=== PATIENT | male | born 1975 | race Caucasian/White ===

== ENCOUNTER 2016-10-16 06:20 | Inpatient (IN) | payer OTHER ==
[~2016-10-16] VITALS: Ht 182.9 cm; Wt 176.9 kg
[2016-10-16] VITALS (7 sets, daily range): BP systolic 127–159; BP diastolic 50–76
--- NOTE | ~2016-10-16 | O ---
[facility] [place] [address] OPERATIVE REPORT Name: PAULA GUNDERSON Room #: 547-P [facility] IN ..#: [id number] Admission: 10/16/16 Attend Phys: Arturo Coffey MD, F Discharge: 10/17/16 Date of : 71 Report #: [id number] THIS REPORT FOR: //name// CC: Blanca Coffey DATE OF SERVICE: 10/16/2016 SURGEON: Arturo Coffey M.D. NON MORSE INTERCEPT TECHNICIAN: Yovany Pitts M.D., Nevin Mehta N.Lazaro. PREOPERATIVE DIAGNOSES: 1. Super morbid obesity (body mass index greater than 50). 2. Type 2 diabetes mellitus. 3. Hypertension. 4. Gastroesophageal reflux disease. 5. Arthritis. 6. Asthma. 7. Bipolar mood disorder. 8. Depression. 9. Obstructive sleep apnea. POSTOPERATIVE DIAGNOSES: 1. Super morbid obesity (body mass index greater than 50). 2. Type 2 diabetes mellitus. 3. Hypertension. 4. Gastroesophageal reflux disease. 5. Arthritis. 6. Asthma. 7. Bipolar mood disorder. 8. Depression. 9. Obstructive sleep apnea. PROCEDURE: Laparoscopic sleeve gastrectomy with EGD. ANESTHESIA: General endotracheal anesthesia and local anesthetic. ESTIMATED BLOOD LOSS: 5 mL. SPECIMEN: Lateral stomach. COMPLICATIONS: None appreciated. INDICATIONS FOR PROCEDURE: This is a 41-year-old male patient who is super morbidly obese. He stands 6 feet 0 inches and weighed 409 pounds at his last [facility] [address] [place] [address] OPERATIVE REPORT Name: PAULA GUNDERSON Room #: 547-P [facility] IN ..#: [id number] Admission: 10/16/16 Attend Phys: Arturo Coffey MD, F Discharge: 10/17/16 Date of : 71 Report #: [id number] office visit. His body mass index was 55.5. His maximum weight is 450 pounds. He has had difficulty with his weight for his entire life and has tried numerous weight loss programs and plans with limited weight loss success. Any amount of weight he has lost, he has quickly regained plus additional weight after stopping the modality. He has numerous associated comorbidities including hypertension, obstructive sleep apnea and those listed above. The patient has been cleared from a multidisciplinary standpoint (dietary, psychology, and medically by his primary care physician). The patient presents now for bariatric surgery in the form of laparoscopic sleeve gastrectomy with EGD. OPERATIVE FINDINGS: On EGD, the patient's esophagus was normal down to 40 cm where the GE junction and Z-line were visualized. No hiatal hernia was present. The scope was advanced into the stomach, then beyond the pylorus to the third portion of the duodenum. There were no polyps, masses, diverticula, or ulcers seen. On retroflexion of the scope, a hiatal hernia was not present. Laparoscopically, the patient had an enlarged stomach. The liver showed mild fatty changes without genevieve steatohepatitis. The small-bowel and colon in the surrounding area appeared otherwise normal. The staple line was located 1 cm lateral to the GE junction, 3 cm lateral to the incisura of the stomach, and 4 cm lateral/proximal to the pylorus. Immediately after applying Tisseel to the staple line, the gastroscope within the sleeve was used to insufflate air and perform a leak test. The leak test was negative whereby no air bubbles were seen forming within the Tisseel. Endoluminally, there was no bleeding within the sleeve. No other significant intraabdominal pathology was identified. At the conclusion of the operation, the sponge, needle, and instrument counts were correct and there was no evidence for iatrogenic injury. The excised stomach was filled with 1500 mL of fluid on the back table. DESCRIPTION OF PROCEDURE IN DETAIL: After the benefits and risks of the procedure were explained to the patient which include but are not limited to risks of bleeding, infection, postoperative pain, postoperative expectations and risks of DVT and pulmonary embolus, informed consent was obtained. The patient was identified in the preoperative holding area. The patient was given IV antibiotics as documented in the chart in line with SCIP protocol. The patient was then taken to the operating room and was placed in the supine position. The patient was given IV sedation and was intubated without incident. SCDs were placed on the patient's bilateral lower extremities prior to induction of anesthesia. The patient had been placed in the modified low lying dorsal lithotomy position in stirrups on the beanbag. The beanbag and the patient were taped to the bed to secure the patient. A time-out was then performed to correctly identify the patient and procedure. An orogastric tube was placed by anesthesia. A bite block was placed and the fiberoptic EGD scope was passed into the patient's oropharynx, down the esophagus, into the stomach, and into the third portion of the duodenum. [facility] [address] [place] [address] OPERATIVE REPORT Name: PAULA GUNDERSON Room #: 547-P [facility] IN M.R.#: [id number] Admission: 10/16/16 Attend Phys: Arturo Coffey MD, F Discharge: 10/17/16 Date of : 71 Report #: [id number] Findings are as noted above. The scope was slowly withdrawn into the antrum and the scope was retroflexed. The hiatus was visualized. The scope was then straightened and the end of the gastroscope was placed at the pylorus. The stomach was decompressed with the scope. The patient's abdomen was then prepped and draped in the standard sterile fashion with surgical prep. Local anesthetic was infiltrated into the skin and subcutaneous tissue in the left supraumbilical area where a sharp #15-blade scalpel was used to make a 5-mm incision. The 5-mm Visiport was placed intraperitoneally with the 5-mm 0-degree angled laparoscope. Pneumoperitoneum was then achieved with insufflation of carbon dioxide to 15 mmHg. A 5-mm 30-degree angled laparoscope was then inserted. The 15-mm port was placed in the right supraumbilical area after local anesthetic was infiltrated into the skin and subcutaneous tissue and an appropriately sized incision was made. Two additional 5 mm ports were placed in the left abdomen after local anesthetic was infiltrated and incisions were made. All ports were placed under direct visualization. The patient was then placed in reverse Trendelenburg position. Local anesthetic was infiltrated into the skin and subcutaneous tissue in the subxiphoid area and a 5-mm incision was made through which a 5-mm obturator was passed into the abdominal cavity through the fascia to create a passageway for the Philomena liver retractor. The retractor was placed to retract the liver anteriorly. The retractor was held in place with the [employer]st apparatus. All abdominal adhesions were then taken down with blunt dissection, sharp dissection and judicious use of the ultrasonic dissector. The gastrosplenic ligament and short gastric vessels were then divided using the ultrasonic dissector with appropriate traction. Bleeding points were made hemostatic with the ultrasonic dissector. Dissection was carried proximally up to the left channing of the diaphragm. The distal end point of dissection was then measured at 4 cm proximal to the pylorus. The short gastric vessels and gastrocolic ligaments were dissected to that level. The stomach was then rotated medially to visualize any posterior attachments/adhesions to the stomach. The adhesions were dissected with a combination of sharp dissection and use of the ultrasonic dissector. The endoscope was then slightly withdrawn to place it along the lesser curvature of the stomach. Suction was applied to the orogastric tube which was then removed, leaving the endoscope in place as a 34 Fr bougie. The gastric sleeve was then created. Two black loads of the powered endoscopic DEVEN stapler buttressed with Nesha-Strips were used to staple and divide the stomach 4 cm proximal to the pylorus. Additional green loads buttressed with Nesha-strips were used to staple off the remainder of the stomach using the endoscope as the bougie. Care was taken to ensure that greater than 3 cm of space was present between the incisura and the staple line. The stomach was fully transected and placed in the right upper quadrant of the abdomen for later removal. The staple line of the sleeve was then clipped with Hemoclips [facility] [address] [place] [address] OPERATIVE REPORT Name: PAULA GUNDERSON Morgan Room #: 547-P [facility] IN M.R.#: [id number] Admission: 10/16/16 Attend Phys: Arturo Coffey MD, F Discharge: 10/17/16 Date of : 71 Report #: [id number] at the distal end of the staple line to provide hemostasis. Tisseel was applied to the entire length of the staple line with the Duplospray aerosolizer to fully ensure hemostasis. A leak test was performed next. The sleeve was insufflated with the endoscope which was slowly withdrawn. No air bubbles were seen in the Tisseel laparoscopically. Endoluminally, no bleeding was seen. The stomach was fully decompressed and the scope was slowly withdrawn. The Philomena liver retractor was then loosened from the [employer]st apparatus and it was removed without difficulty. The stomach was then removed from the patient's body through the 15-mm port under direct visualization. A small amount stretching of the fascia was required to create an opening large enough for removal of the stomach. After its removal, the 15-mm port site fascial opening was closed with an 0-PDS suture using the Arturo-Jennie laparoscopic fascial closure device. All ports were removed after the abdominal cavity was desufflated. The fascial suture was tied. Interrupted subcuticular 4-0 Monocryl sutures and Dermabond were used to close all skin incisions. The patient tolerated the procedure well. The patient was awakened, extubated and taken to the recovery room in stable condition with no apparent intraoperative complications. <ELECTRONICALLY SIGNED> By: Arturo Coffey MD, FACS 10/18/16 1001 1341 1438 Arturo Coffey MD, FACS /nt
--- NOTE | ~2016-10-16 | S ---
[facility] [place] [address] SURGICAL PATH RPT PROCEDURE Name: NATHALY JUAREZ Room #: 547-P [facility] IN M.R.#: [id number] Admission: 10/16/16 Date of : 71 Discharge: 10/17/16 Report #: [id number] Path Case #: [id number] PATHOLOGY REPORT COLLECTION DATE: 10/16/2016 RECEIVED DATE: 10/17/2016 SUBMITTING PHYS: Dr. Arturo Coffey OTHER PHYS: Dr. Blanca Prieto SPECIMEN(S) RECEIVED: A.Sleeve gastrectomy * * * * * * * * * * * * FINAL DIAGNOSIS: Stomach, partial sleeve gastrectomy: - No significant diagnostic abnormalities present, history of morbid obesity. (IUV:ashanti; 10/21/2016) PATHOLOGIST: Allegra Puckett M.D. REPORT ELECTRONICALLY SIGNED BY: Allegra Puckett M.D. DATE/TIME: 10/21/2016 15:44 * * * * * * * * * * * * GROSS PATHOLOGY: The specimen is received in formalin, labeled "Nathaly Juarez, sleeve gastrectomy" is a partial gastrectomy specimen weighing 263 g and measuring 22.6 x 7.5 x 4.5 cm. Margin resections close Delores amol area a scant amount of attached adipose tissue is noted. The serosa has a brown-robles, smooth appearance. The lumen contains hemorrhagic and mucoid material. The mucosa has a pink red, velvety, focally congested appearance and shows its normal rugal folds. No mass lesions or transmural defects are identified. Process Improvement Engineer sections are submitted in cassettes A1-A3. (JWP; 10/18/2016) CLINICAL HISTORY: Morbid obesity INITIAL CPT CODE(S): A; 91442 Professional services performed by [facility] at [facility] [address], [place] [address] [facility] [address] [place] [address] SURGICAL PATH RPT PROCEDURE Name: NATHALY JUAREZ Room #: 547-P [facility] IN .R.#: [id number] Admission: 10/16/16 Date of : 71 Discharge: 10/17/16 Report #: [id number] Path Case #: [id number] Technical services performed by [facility] at [address] [place] [address], [facility] [address] [address]. [place] [address] PHONE: [phone] DIRECTOR: Balwinder Phillips M.D. * * * END OF REPORT * * *
--- NOTE | ~2016-10-16 | EKG ---
[address] [place] [address] ELECTROCARDIOGRAM REPORT Name: PAULA GUNDERSON Room #: 150-9 [facility].R.#: [id number] Admission: 10/16/16 Attend Phys: Arturo Coffey MD, F Discharge: Date of : 71 Report #: [id number] THIS REPORT FOR: //name// [facility] Test Date: 2016-10-16 Test Time: 11:58:44 Pat Name: PAULA GUNDERSON Department: Room: 150 9 Gender: M Branch Associate Teller: FRANCOIS : 1975 Requested By: Arturo Coffey Order Number: [id number] MD: Kailash Higginbotham Measurements Intervals [place] Rate: 70 P: 5 VA: 187 QRS: -9 QRSD: 99 T: 11 QT: 398 QTc: 430 Interpretive Statements Sinus rhythm Poor R wave progression Compared to ECG 11/07/2015 08:15:14 No significant abnormality Electronically Signed On 10-16-2016 18:29:29 CDT by Kailash Higginbotham [email or web address] <ELECTRONICALLY SIGNED> By: Kailash Higginbotham MD, [facility] 10/16/16 1829 1158 1158 Kailash Higginbotham MD, [facility] /EPI
[~2016-10-16 06:20] MED LIST: AMLODIPINE BESY10 MG PO; ASPIRIN325 PO; COREG25 MG PO; HYDROCHLOROTHIA25 M2 PO; LISINOPRIL-HCT1 EAC1 PO; LISINOPRIL20 MG PO; MEN'S MULTI-VI1 EACH PO; METFORMIN HCL500 MG PO; NORVASC10 MG PO; OMEPRAZOLE 20 M20 M1 PO; PAXIL PO; PAXIL10 MG PO; PRINIVIL20 MG PO; PROAIR HFA8.5 GM INH
[2016-10-16 13:58] LABS: CALCIUM 9.1 mg/dL (8.5-10.1); CREATININE 1.1 mg/dL (0.7-1.3)
[2016-10-17 03:44] VITALS: BP 134/77
[2016-10-17 06:05] LABS: ABSOLUTE NEUTROPHILS 8.2 thou/uL (1.4-8.2); BASOPHILS 0.2 % (0.0-2.0); HEMATOCRIT 45.2 % (42.0-52.0); HEMOGLOBIN 15.3 gm/dL (14.0-18.0); LYMPHOCYTES 10.6 % (24.0-44.0); MCHC 33.9 g/dL (28.0-37.0); MCV 91.4 fL (80.0-100.0); MONOCYTES 7.4 % (1.0-8.0); PLATELET COUNT 174 thou/uL (150-400); POLYS 81.8 % (36.0-66.0); RBC 4.95 mil/uL (4.50-6.00); RDW 13.6 % (10.5-14.5)
[2016-10-17 06:09] LABS: MANUAL DIFF NO
[2016-10-17 06:15] LABS: CALCIUM 8.5 mg/dL (8.5-10.1); CREATININE 1.4 mg/dL (0.7-1.3); POTASSIUM 4.2 mmol/L (3.5-5.1)
[2016-10-17 07:34] VITALS: BP 157/91
[2016-10-17 09:04] VITALS: BP 150/82
[2016-10-17] MEDS ORDERED: ZOFRAN ODT4 MG DISSOLVE (09:07)
[2016-10-17 09:29] VITALS: BP 150/82
[2016-10-17 11:04] VITALS: BP 150/82
[2016-10-17 11:23] VITALS: BP 150/82
== END 2016-10-17 11:28 | disposition home or self-care (01) | DRG 620 ==
LOC: OR 06:20 → TBA 06:20 → OR 08:47 → 5S 19:01 → OR 19:02 → 5S 10-17 11:28 → OR 10-17 11:28
PROVIDERS: Surgery
PROC: 0DB64Z3 Excision of Stomach, Percutaneous Endoscopic Approach, Vertical (ICD-10-PCS; principal; 2016-10-16)
PROC: 0DJ08ZZ Inspection of Upper Intestinal Tract, Via Natural or Artificial Opening Endoscopic (ICD-10-PCS; principal; 2016-10-16)
DX: E66.01 Morbid (severe) obesity due to excess calories (principal); F31.89 Other bipolar disorder; E11.9 Type 2 diabetes mellitus without complications; I10 Essential (primary) hypertension; K21.9 Gastro-esophageal reflux disease without esophagitis; M19.90 Unspecified osteoarthritis, unspecified site; J45.909 Unspecified asthma, uncomplicated; G47.33 Obstructive sleep apnea (adult) (pediatric); F41.9 Anxiety disorder, unspecified; Z68.43 Body mass index [BMI] 50.0-59.9, adult; Z91.041 Radiographic dye allergy status
CPT/HCPCS: 10785; 50010; 50101; 50222; 50249; 50386; 50555; 50740; 50962; 51436; 51437; 52182; 52265; 53307; 53311; 54022; 54118; 55245; 56462; 56525; 56526; 57092; 62110; 62900; 70005

== ENCOUNTER → 2017-02-10 | Outpatient (CLI) | payer OTHER ==
[~2017-02-10] MED LIST changes: +ZOFRAN ODT4 MG DISSOLVE
== END ==
LOC: RAD 07:47
DX: K21.9 Gastro-esophageal reflux disease without esophagitis (principal); I10 Essential (primary) hypertension; E11.9 Type 2 diabetes mellitus without complications; E66.01 Morbid (severe) obesity due to excess calories; Z98.84 Bariatric surgery status; Z68.43 Body mass index [BMI] 50.0-59.9, adult; Z72.0 Tobacco use